=== PATIENT | male | born 1950 | race Caucasian/White ===

== ENCOUNTER 2016-10-03 05:37 | Day surgery (SDC) | payer MEDICARE ==
[2016-10-02 11:59] LABS: HEMATOCRIT 39.6 % (42.0-54.0); HEMOGLOBIN 13.1 g/dL (13.5-17.5); MCHC 33.1 g/dL (31.0-37.0); MCV 87.8 fL (80.0-100.0); MEAN PLATELET VOLUME 9.6 fL (7.4-10.4); RBC 4.51 10x6/uL (4.20-6.10); RDW 12.9 % (11.5-14.5); WBC 5.8 10x3/uL (4.8-10.8)
[2016-10-02 12:28] LABS: CALC OSMOLALITY 281 mosm/kg (275-300); CALCIUM 9.3 mg/dL (8.5-10.1); CARBON DIOXIDE 27.9 mmol/L (21.0-32.0); CHLORIDE - SERUM 103 mmol/L (98-107); CREATININE - SERUM 0.8 mg/dL (0.6-1.3); GLUCOSE 123 mg/dL (74-106); POTASSIUM - SERUM 3.9 mmol/L (3.5-5.1); SODIUM 141 mmol/L (136-145); UREA NITROGEN 12 mg/dL (7-18); eGFR NON AFRICAN AMERICAN > 90 mL/min (90-120)
[~2016-10-03] VITALS: Ht 180.3 cm; Wt 99.8 kg
[~2016-10-03 05:37] MED LIST: ASPIRIN325 MG PO; ATIVAN1 MG PO; ATIVAN2 MG PO; BAYER CHEWABLE81 MG PO; CARBIDOPA-LEVO1 EAC2 PO; CIMETIDINE PO; CIMETIDINE200 MG PO; CLONAZEPAM2 MG/TAB; CLONAZEPAM2 MG/TAB PO; CRESTOR20 MG PO; CYMBALTA30 MG PO; CYMBALTA60 MG PO; DESERYL100 MG PO; DILAUDID2 MG PO; DILAUDID4 MG PO; FISH OIL 1,0001 CA1 PO; FISH OIL 1,2001 CAP PO; FISH OIL PO; FLOMAX0.4 MG PO; HUMULIN N100 U/ML SC; HUMULIN R100 U/ML SC; K-DUR20 MEQ PO; LASIX20 MG PO; LIPITOR40 MG PO; METOPROLOL TAR100 M1 PO; METOPROLOL TART50 MG PO; MICRO-K10 MEQ PO; MORPHINE SULFAT30 MG PO; MS CONTIN200 MG PO; MS CONTIN30 MG PO; MYSOLINE 50 MG50 MG PO; NATURAL SENNA8.6 MG PO; NEURONTIN800 MG PO; NIASPAN500 MG PO; NORVASC10 MG PO; NOVOLIN 70/30 110 ML SC; PAMELOR10 MG PO; PEPCID20 MG PO; PLAVIX75 MG PO; PRAVACHOL40 MG PO; RANEXA500 MG PO; SEROQUEL400 MG PO; STOOL SOFTENER PO; STOOL SOFTENER240 MG PO; TRAZODONE HCL50 MG PO; ZANTAC300 MG PO; ZESTRIL10 MG PO; ZYLOPRIM100 MG PO
[2016-10-03 07:38] VITALS: BP 126/64; Ht 180.3 cm; Wt 99.8 kg
[2016-10-03 08:56] LABS: APTT 25.9 SECONDS (22.8-39.4); INR 0.95 (0.85-1.17); PROTIME 12.5 SECONDS (11.6-15.0)
[2016-10-03] MEDS ORDERED: HYDROCODONE-APA1 TAB PO (13:03)
--- NOTE | 2016-10-03 14:53 | NUR ---
1430- VOIDED WITHOUT DIFFICULTY 1445- IV D/C'D, PT TOLERATED. PORT FLUSHED WITH HEPARIN 1453- DISCHARGE INSTRUCTIONS COMPLETED. PT VERBALIZED UNDERSTANDING. PAPERWORK SIGNED.
--- NOTE | 2016-11-02 10:48 | OP ---
PATIENT NAME: ERIN BECKER MEDICAL RECORD: [id number] :54 LOCATION:[facility] ADMISSION DATE: SURGEON: KYMBERLY DAVIS MD DATE OF OPERATION: 10/03/2016 Orthopedic Surgery Operative Note PREOPERATIVE DIAGNOSIS: Achilles tendon rupture, second time. POSTOPERATIVE DIAGNOSIS: Achilles tendon rupture, second time. PROCEDURE: Revision Achilles tendon repair. ANESTHESIA: General. INTRAOPERATIVE COMPLICATIONS: None. SUMMARY OF PATHOLOGIC FINDINGS: Unfortunately, this gentleman had fallen onto his previously fixed Achilles tendon resulting in complete redisruption of the Achilles tendon with loss of fixation and loss of tendon. OPERATION IN DETAIL: After obtaining the appropriate preoperative orthopedic surgery consent as well as anesthetic consultation, evaluation and clearance, the patient was brought to the operating room and placed on the operating table in supine position. After general laryngeal mask was administered, tourniquet was placed about the proximal aspect of the left lower extremity. The patient was then placed in a supine position. All pressure points were well padded. Left lower extremity was prepped and draped in a routine sterile fashion. Leg was elevated and exsanguinated. Tourniquet inflated 350 mmHg. Incision was taken down to the level of the repeat disruption. All previously placed implants were removed. A very small fracture in the posterior part of the os calcis. All this was cleaned out. Copious irrigation was then followed by repeat fixation using the Arthrex Achilles fixation system that is the Arthrex BioComposite Achilles SpeedBridge. This also required a posterior tibialis tendon allograft to augment the fixation which was then augmented with two 2.5 Clarix cord membranes, one 4.03 Clarix cord and one 2.25 Clarix cord membrane. Closure was complete, but tenuous. Having completed this, the area was covered with sterile dressings. The patient was placed in a posterior L&U splint. The patient was awakened, placed back in supine position, extubated, and taken to recovery room in stable condition. All final needle and sponge counts were correct. TRANSINT:[id number] Voice Confirmation ID: [id number] DOCUMENT ID: [id number] KYMBERLY DAVIS MD at 1048 CC: [id number] DICTATION DATE: 11/01/16 1005 LEADERSHIP DEVELOPMENT MANAGER: 11/01/16 1055 [facility] 10/03/16 [facility] [address] [place] [address]
== END 2016-10-03 15:10 | disposition home or self-care (01) ==
LOC: D.OPS 05:37 → D.PAN 10:15 → D.OPS 10:15 → D.PAN 11:00 → D.OPS 15:10
PROVIDERS: Anesthesiology
DX: S86.012A Strain of left Achilles tendon, initial encounter (principal)
CPT/HCPCS: 20924; 27654; C5271

== ENCOUNTER 2016-10-15 17:43 | Emergency (ER) | payer MEDICARE ==
[2016-10-03 07:38] VITALS: BMI 30.7
[~2016-10-15 17:43] MED LIST changes: +HYDROCODONE-APA1 TAB PO
[2016-10-15 18:26] LABS: BASOPHILS 0.4 % (0.0-2.0); HEMATOCRIT 34.6 % (42.0-54.0); HEMOGLOBIN 11.5 g/dL (13.5-17.5); IMMATURE GRANULOCYTES 0.6 % (0-5); LYMPHOCYTES 19.2 % (15-50); MCH 28.7 pg (26.0-34.0); MCHC 33.2 g/dL (31.0-37.0); MCV 86.3 fL (80.0-100.0); MEAN PLATELET VOLUME 9.5 fL (7.4-10.4); MONOCYTES 8.8 % (2-11); RBC 4.01 10x6/uL (4.20-6.10); RDW 12.3 % (11.5-14.5)
[2016-10-15 18:27] LABS: PLATELET COUNT 289 10x3/uL (130-400)
[2016-10-15 18:55] LABS: ALKALINE PHOSPHATASE 120 U/L (46-116); ALT (SGPT) 6 U/L (10-68); BILIRUBIN - TOTAL 0.32 mg/dL (0.2-1.3); CALC OSMOLALITY 273 mosm/kg (275-300); CALCIUM 9.2 mg/dL (8.5-10.1); CARBON DIOXIDE 25.2 mmol/L (21.0-32.0); CHLORIDE - SERUM 99 mmol/L (98-107); CREATININE - SERUM 0.9 mg/dL (0.6-1.3); POTASSIUM - SERUM 4.5 mmol/L (3.5-5.1); PROTEIN - SERUM 7.4 g/dL (6.4-8.2); SODIUM 135 mmol/L (136-145); UREA NITROGEN 11 mg/dL (7-18); eGFR NON AFRICAN AMERICAN > 90 mL/min (90-120)
[2016-10-15 18:56] LABS: GLUCOSE 181 mg/dL (74-106)
[2016-10-15 19:05] LABS: CHOL - HDL RATIO 3.8 ratio (2.3-4.9); CHOLESTEROL, TOTAL 160 mg/dL (0-200); CKMB 0.4 U/L (0.0-3.6); CREATINE KINASE 50 UL (21-232); HDL CHOLESTEROL 42 mg/dL (32-96); LDL CHOLESTEROL 90 mg/dL (0-100); LDL-HDL RATIO 2.1 ratio (1.5-3.5); TRIGLYCERIDE 143 mg/dL (30-200)
[2016-10-15 19:09] LABS: TROPONIN-I < 0.017 ng/mL (0.000-0.060)
[2016-10-15 23:00] LABS: CREATINE KINASE 66 UL (21-232)
[2016-10-15 23:04] LABS: TROPONIN-I < 0.017 ng/mL (0.000-0.060)
== END 2016-10-15 23:52 | disposition home or self-care (01) ==
LOC: D.ER 17:43
PROVIDERS: Emergency Medicine
DX: R07.9 Chest pain, unspecified (principal); I20.8 Other forms of angina pectoris

== ENCOUNTER 2016-10-22 12:13 | Inpatient (IN) | payer MEDICARE ==
[~2016-10-22] VITALS: Ht 180.3 cm; Wt 100.0 kg
[2016-10-22 13:05] VITALS: BP 150/57; Ht 180.3 cm; Wt 100.0 kg
[2016-10-22 14:13] LABS: BASOPHILS 0.5 % (0.0-2.0); EOSINOPHILS 2.1 % (0-7); HEMATOCRIT 35.1 % (42.0-54.0); HEMOGLOBIN 11.6 g/dL (13.5-17.5); IMMATURE GRANULOCYTES 0.1 % (0-5); LYMPHOCYTES 21.2 % (15-50); MCH 28.6 pg (26.0-34.0); MCV 86.5 fL (80.0-100.0); MEAN PLATELET VOLUME 9.7 fL (7.4-10.4); MONOCYTES 5.9 % (2-11); NEUTROPHILS 70.2 % (40-80); PLATELET COUNT 284 10x3/uL (130-400); RBC 4.06 10x6/uL (4.20-6.10); RDW 12.9 % (11.5-14.5); WBC 7.6 10x3/uL (4.8-10.8)
[2016-10-22 14:33] LABS: ANION GAP 14.5 mmol/L (8-16); C-REACTIVE PROTEIN 2.1 mg/dL (0.0-0.9); CALCIUM 8.7 mg/dL (8.5-10.1); CARBON DIOXIDE 26.3 mmol/L (21.0-32.0); CREATININE - SERUM 1.2 mg/dL (0.6-1.3); POTASSIUM - SERUM 4.8 mmol/L (3.5-5.1)
[2016-10-22 14:34] LABS: HEMOGLOBIN A1C 7.7 % (4.8-6.0)
--- NOTE | 2016-10-22 14:40 | NUR ---
PATIENT'S LEFT SUBCLAVIAN PORT ACCESSED WITH A 1 INCH MICHELE NEEDLE. IVF BEGUN PER ORDERS AND DILAUDID PLANT CARE WORKER INITIATED. HE VERBALIZED UNDERSTANDING OF THE VERBAL INSTRUCTIONS GIVEN. ABTS HUNG, LUNCH PROVIDED. HIS IMMOBILIZER BOOT, JACKET AND COWBOY BOOT ARE IN THE CLOSET. HE HAS A FLIP PHONE AND DENIES WANTING TO SEND IT TO THE [facility]. CALL LIGHT IS WITHIN HIS REACH ANF HE UNDERSTANDS HOW TO USE IT.
[2016-10-22 15:59] LABS: ERYTHROCYTE SEDIMENTATION RATE 66 mm/hr (0-20)
[2016-10-22 16:27] VITALS: BP 109/53
--- NOTE | 2016-10-22 17:20 | NUR ---
PATIENT GIVEN HER INSULIN AND VANCOMYCIN. HE IS SITTING UP IN IN HIS BED EATING SUPPER. HE IS LOCKED OUT ON THE MORTGAGE ORIGINATOR.
--- NOTE | 2016-10-22 19:32 | NUR ---
PATIENT RESTING SAMMIE, ERICK IN [place] FOWLERS WATCHING TV. DENIES NEEDS.
[2016-10-22 21:14] VITALS: BP 116/54
--- NOTE | 2016-10-23 07:20 | NUR ---
ASSESSMENT PER FLOW SHEET.PT WITHOUT DISTRESS.CALL LIGHT IN REACH.DENIES NEEDS.ENGINEERING PROJECT DESIGNER FOR PAIN.
[2016-10-23 07:23] LABS: BASOPHILS 0.3 % (0.0-2.0); EOSINOPHILS 3.3 % (0-7); HEMATOCRIT 37.6 % (42.0-54.0); HEMOGLOBIN 12.1 g/dL (13.5-17.5); IMMATURE GRANULOCYTES 0.3 % (0-5); LYMPHOCYTES 24.1 % (15-50); MCHC 32.2 g/dL (31.0-37.0); MEAN PLATELET VOLUME 9.7 fL (7.4-10.4); PLATELET COUNT 284 10x3/uL (130-400); RBC 4.32 10x6/uL (4.20-6.10); RDW 12.9 % (11.5-14.5); WBC 6.4 10x3/uL (4.8-10.8)
[2016-10-23 07:31] LABS: CALC OSMOLALITY 285 mosm/kg (275-300); CALCIUM 8.8 mg/dL (8.5-10.1); CARBON DIOXIDE 27.9 mmol/L (21.0-32.0); CHLORIDE - SERUM 104 mmol/L (98-107); CREATININE - SERUM 0.9 mg/dL (0.6-1.3); GLUCOSE 183 mg/dL (74-106); POTASSIUM - SERUM 4.5 mmol/L (3.5-5.1); SODIUM 140 mmol/L (136-145); eGFR NON AFRICAN AMERICAN > 90 mL/min (90-120)
[2016-10-23 07:35] LABS: UREA NITROGEN 19 mg/dL (7-18)
[2016-10-23 08:36] VITALS: BP 104/52
--- NOTE | 2016-10-23 10:27 | NUR ---
Patient Name: ERIN BECKER Admission Status: Elective Accout number: [id number] Admission Date: 10-22-2016 : 1950 Admission Diagnosis: Attending: KACEY Current LOS: 1 Anticipated DC Date: 10-28-2016 Planned Disposition: Home Primary Insurance: MEDICARE A & B Discharge Planning Comments: CM MET WITH PATIENT REGARDING D/C NEEDS AND PLANS. PATIENT STATED HE LIVES WITH HIS EX- (IRAM) AND SHE WILL PICK HIM UP AT DISCHARGE. THERE ARE NO STEPS OR STAIRS AT PATIENTS HOME. PATIENT STATED HE IS INDEPENDENT WITH HIS CARE AND HIS EX- WOULD HELP IF NEEDED. PATIENT STATED HE HAS A WALKER, WHEELCHAIR, CRUTCHES, BS COMMODE, SHOWER CHAIR, AND GLUCOMETER AT HOME. PATIENT STATED HE CHECKS HIS BS 2X A DAY. PATIENTS PCP IS DR. RODRIGUEZ AND PHARMACY IS [facility] AT [place]. PATIENT STATED HE DOES NOT WANT HOME HEALTH UNLESS DOCTOR THINKS HE SHOULD. PATIENT STATED HE AND IRAM COULD DO DRESSING CHANGES. CM EXPLAINED HOME HEALTH MIGHT BE NEEDED FOR WOUND CARE. CM WILL CONTINUE TO FOLLOW PATIENT WITH D/C NEEDS AND PLANS. PCP DR. RODRIGUEZ [facility] [phone] IRAM (EX-) [phone] Tree Feller Operator: Sadie Ho Is the patient Alert and Oriented? Yes 0 * How many steps to enter\exit or inside your home? NO 0 * PCP DR. RODRIGUEZ 0 * Pharmacy [facility] IN [place] 0 * Preadmission Environment Home with Family 0 * ADLs Independent 0 * Equipment Bedside Commode Crutch Glucometer Shower Chair Walker Wheelchair 0 * List name and contact numbers for known caregivers / representatives who currently or will assist patient after discharge: IRAM (EX-) [phone] 0 * Community resources currently utilized None 0 * Additional services required to return to the preadmission environment? Yes 0 * Can the patient safely return to the preadmission environment? Yes 0 * Has this patient been hospitalized within the prior 30 days at any hospital? No 0 Grand Total: 0
[2016-10-23 13:48] VITALS: BP 89/60
--- NOTE | 2016-10-23 15:18 | NUR ---
REMAINS WITHOUT DISTRESS.ELLIS TO BRING SUPPLIES FOR DRESSING CHANGE,SPOKE WITH HER EARLIER WHEN SHE WAS ON UNIT.MONITOR
[2016-10-23 16:01] VITALS: BP 106/58
--- NOTE | 2016-10-23 19:40 | NUR ---
REMAINS WITHOUT NEEDS,WITHOUT DISTRESS.CONT PLAN OF CARE
[2016-10-23 20:00] VITALS: BP 109/47
[2016-10-24] VITALS (7 sets, daily range): BP systolic 94–168; BP diastolic 43–74
--- NOTE | 2016-10-24 01:59 | NUR ---
PT LAYING IN BED EYES CLOSED PT APPERS TO BE SLEEPING AT THIS TIME PT NPO FOR I AND D IN AM WITH DR DAVIS PT AWARE AND UNDERSTANDS PROCEDURE. CONSENTS NEED TO BE SIGNED AND WILL HAVE PT SIGN CONSENTS IN AM WHEN PT WAKES UP. RESPERATIONS EVEN AND UNLABORED AT THIS TIME CALL LIGHT IN REACH SRX2 BED LOW AND LOCKED WILL MONITOR
--- NOTE | 2016-10-24 05:21 | NUR ---
PT LAYING IN BED NO DISTRESS OBSERVED CALL LIGHT IN REACH SRX2 BED LOW AND LOCKED PT APPERS TO BE SLEEPING AT THIS TIME LABS DRAWN AND SENT TO LAB WILL MONITOR
[2016-10-24 05:32] LABS: BASOPHILS 0.5 % (0.0-2.0); EOSINOPHILS 3.4 % (0-7); HEMATOCRIT 32.8 % (42.0-54.0); HEMOGLOBIN 10.3 g/dL (13.5-17.5); IMMATURE GRANULOCYTES 0.4 % (0-5); LYMPHOCYTES 24.6 % (15-50); MCH 27.5 pg (26.0-34.0); MCHC 31.4 g/dL (31.0-37.0); MCV 87.7 fL (80.0-100.0); MEAN PLATELET VOLUME 9.8 fL (7.4-10.4); MONOCYTES 8.1 % (2-11); PLATELET COUNT 248 10x3/uL (130-400); RBC 3.74 10x6/uL (4.20-6.10); WBC 5.6 10x3/uL (4.8-10.8)
[2016-10-24 06:11] LABS: CALC OSMOLALITY 281 mosm/kg (275-300); CALCIUM 8.4 mg/dL (8.5-10.1); CARBON DIOXIDE 26.3 mmol/L (21.0-32.0); CHLORIDE - SERUM 103 mmol/L (98-107); CREATININE - SERUM 0.9 mg/dL (0.6-1.3); GLUCOSE 162 mg/dL (74-106); POTASSIUM - SERUM 4.2 mmol/L (3.5-5.1); SODIUM 138 mmol/L (136-145); UREA NITROGEN 18 mg/dL (7-18); eGFR NON AFRICAN AMERICAN > 90 mL/min (90-120)
--- NOTE | 2016-10-24 07:57 | NUR ---
PT AWAKE AND ALERT ORINETED X 3 LUNGS CLEAR BILAT. BSA X 4 NPO FOR I&D THIS AFTERNOON WITH DR DAVIS. CALL LIGHT IN REACG SIDE RAILS UP X 2 VOICES ALL NEEDS TO STAFF. CONTINUES WITH DILAUDID PLATE MOUNTER FOR PAIN CONTROL WILL MONITOR.
--- NOTE | 2016-10-24 09:07 | NUR ---
WOUND CARE CONSULT: CHANGED DRESSING TO LEFT HEEL USING ADAPTIC, CAST PADDING AND GATITO WRAP. PT TOLERATED WELL.
--- NOTE | 2016-10-24 09:45 | NUR ---
PT PREOPPED FOR SURGERY PER CALL OF OR TEAM PT TO GO EARLY INSTEAD OF SCHEDULED TIME OF 1400
--- NOTE | 2016-10-24 10:00 | NUR ---
PT TRANSPORTED VIA BED TO PREOP HOLDING PER SURGERY CARTON REPAIRER
--- NOTE | 2016-10-24 12:15 | NUR ---
PT RECIEVED FROM RECOVERY AWAKE AND ALERT ORIENTED X 3 DRESSING OT LEFT HEEL WITH SOME BLEED THROUGH NOTED REINFORCED THE DRESSING. WAS GIVEN 2 MG DILAUDID IN RECOVERY
--- NOTE | 2016-10-24 16:25 | NUR ---
PATIENT LAYING IN BED WITH NO COMPLAINTS AT THIS TIME. IV INTACT. NO COMPLAINTS. CALL LIGHT WITHIN REACH.
--- NOTE | 2016-10-24 17:29 | NUR ---
TREATED BLOOD SUGAR 229 PER SLIDING SCALE ORDERS. DRESSING REMAINS INTACT TO LEFT FOOT CALL LIGHT IN REACH SIDE RAILS UP X 2
[2016-10-25 00:30] VITALS: BP 145/52
[2016-10-25 05:00] VITALS: BP 116/55
[2016-10-25 06:48] LABS: BASOPHILS 0.2 % (0.0-2.0); EOSINOPHILS 2.6 % (0-7); HEMATOCRIT 33.5 % (42.0-54.0); HEMOGLOBIN 10.8 g/dL (13.5-17.5); IMMATURE GRANULOCYTES 0.2 % (0-5); LYMPHOCYTES 25.6 % (15-50); MCH 28.1 pg (26.0-34.0); MCHC 32.2 g/dL (31.0-37.0); MEAN PLATELET VOLUME 9.8 fL (7.4-10.4); MONOCYTES 7.9 % (2-11); NEUTROPHILS 63.5 % (40-80); PLATELET COUNT 243 10x3/uL (130-400); RBC 3.85 10x6/uL (4.20-6.10); RDW 12.7 % (11.5-14.5)
[2016-10-25 07:02] LABS: CALC OSMOLALITY 279 mosm/kg (275-300); CALCIUM 8.5 mg/dL (8.5-10.1); CARBON DIOXIDE 28.7 mmol/L (21.0-32.0); CHLORIDE - SERUM 102 mmol/L (98-107); CREATININE - SERUM 0.9 mg/dL (0.6-1.3); GLUCOSE 167 mg/dL (74-106); SODIUM 138 mmol/L (136-145); eGFR NON AFRICAN AMERICAN > 90 mL/min (90-120)
[2016-10-25 07:03] LABS: UREA NITROGEN 13 mg/dL (7-18)
--- NOTE | 2016-10-25 07:29 | NUR ---
AM ROUNDING- PT SITTING UP IN BED WITH EYES OPEN RESTING. PT IS ALERT AND ORIENTED. IV SEEN TO LEFT INFUSAPORT WITH 1/2 NS RUNNING AT 50CC. BUYER BROKER SEEN WITH DILAUDID AT 0.2MG Q 10 MINUTES WITH A 4MG LOCKOUT IN 4 HOURS PER REPORT FROM CATERING COORDINATOR NURSELOWELL. ON ROOM AIR. NO MONITOR. URINAL AT BEDSIDE. FSBS ACHS, 174 THIS AM THAT WAS COVERED BY CATERING COORDINATOR NURSELOWELL. NO NEED AT CURRENT TIME. WILL CONTINUE TO MONITOR.
[2016-10-25 08:03] VITALS: BP 124/66
[2016-10-25] MEDS ORDERED: VIBRAMYCIN 100100 MG PO (09:48)
[2016-10-25] MEDS ORDERED: DILAUDID2 MG PO (09:51)
--- NOTE | 2016-10-25 10:09 | NUR ---
CM REASSESSMENT NOTE: PATIENTS WILL DRIVE PATIENT HOME TODAY AT DISCHARGE. PATIENT WAS OFFERED HOME HEALTH AND HE REFUSED AND CM SPOKE WITH MAYA NGUYEN FOR DR. DAVIS AND SHE STATED HE DID NOT NEED HOME HEALTH. PATIENT HAD NO OTHER NEEDS FOR DISCHARGE.
--- NOTE | 2016-10-25 11:59 | NUR ---
PTS INFUSA PORT TO LEFT CHEST FLUSHED WITH HEPARIN AND REMOVED. TOLERATED WELL. D/C PAPERWORK EXPLAINED TO PT, SIGNED AND DATED AND PLACED IN CHART. PT D/C VIA WHEELCHAIR HOME WITH .
[2016-10-25 12:02] VITALS: BP 143/83
--- NOTE | 2016-10-28 17:08 | OP ---
PATIENT NAME: ERIN YOO MEDICAL RECORD: [id number] :54 LOCATION:[id number] ADMISSION DATE:10/22/16 SURGEON: KYMBERLY DAVIS MD DATE OF OPERATION: 10/24/2016 PREOPERATIVE DIAGNOSIS: Re-rupture of the Achilles tendon with wound dehiscence. POSTOPERATIVE DIAGNOSIS: Re-rupture of the Achilles tendon with wound dehiscence. This is of his left ankle. PROCEDURES: 1. Excisional debridement to include skin, subcutaneous tissue, portions of fat, fascia, muscle, and bone greater than 20 cm-squared. 2. Application of Amniox Neox wound covering 8 x 3. SURGEON: Kymberly Davis MD ANESTHESIA: General. INTRAOPERATIVE COMPLICATIONS: None. INDICATIONS: Mr. Yoo initially had an Achilles tendon rupture in his postoperative period. He fell on to his left ankle and re-ruptured it. It was subsequently fixed again and yet another time, he fell or stepped onto his foot and heard a pop, during which time he was told to be complete nonweightbearing. Now, he has developed a large wound dehiscence, nonhealing, and he is brought in for the above surgery. OPERATIVE SUMMARY IN DETAIL: After obtaining the appropriate preoperative orthopedic surgery consent as well as anesthetic consultation, evaluation, and clearance, the patient was brought to the operating room and placed on the operating table in supine position. After adequate general endotracheal anesthesia was administered, the patient was placed in a prone position. All pressure points were well padded. The left lower extremity and ankle were then prepped and draped in a routine sterile fashion. Serial and sequential scalpel and rongeur debridement was used to take out all devitalized skin, subcutaneous tissue, portions of the tendon and bone at the previous insertion sites. Some of the tendon is retained although scant, it is probably less than 30% and given the overall infectious nature of it, I did not feel like a reapproximation with any permanent suture is a good idea. After all excisional debridements had been carried out, 8 x 3 Neox umbilical cord was placed over it and sewn in place circumferentially using 2-0 Monocryl. This resulted in excellent coverage of the entire wound bed, which was bleeding at the time of coverage. The Amniox was then covered with nonstick Adaptic followed by 4 x 4s, and sterile dressing. The patient was then returned to a supine position, awakened, taken to recovery room in stable condition. All final needle and sponge counts were correct. TRANSINT:[id number] Voice Confirmation ID: [id number] DOCUMENT ID: [id number] OPERATIVE REPORT [id number] ERIN YOO MD, KYMBERLY MCCARTNEY at 1708 CC: [id number] DICTATION DATE: 10/24/16 111 DIESEL ENGINE MECHANIC APPRENTICE: 10/24/161911 DIS IN 10/25/16 [id number] [place] [address]
== END 2016-10-25 12:04 | disposition home or self-care (01) | DRG 905 ==
LOC: D.MS 12:13
PROVIDERS: Family Medicine; ADMIT Orthopaedic Surgery
PROC: 0HRNXK3 Replacement of Left Foot Skin with Nonautologous Tissue Substitute, Full Thickness, External Approach (ICD-10-PCS; 2016-10-24)
PROC: 0QBM0ZZ Excision of Left Tarsal, Open Approach (ICD-10-PCS; principal; 2016-10-24 14:15)
DX: T81.32XA Disruption of internal operation (surgical) wound, not elsewhere classified, initial encounter (principal); S86.012A Strain of left Achilles tendon, initial encounter; W19.XXXA Unspecified fall, initial encounter; I25.10 Atherosclerotic heart disease of native coronary artery without angina pectoris; Z95.1 Presence of aortocoronary bypass graft; Z95.9 Presence of cardiac and vascular implant and graft, unspecified; I10 Essential (primary) hypertension; E78.5 Hyperlipidemia, unspecified; E11.9 Type 2 diabetes mellitus without complications; Z79.4 Long term (current) use of insulin; I50.9 Heart failure, unspecified

== ENCOUNTER 2016-11-07 07:26 | Day surgery (SDC) | payer MEDICARE ==
[~2016-11-07] VITALS: Ht 180.3 cm; Wt 97.5 kg
[~2016-11-07 07:26] MED LIST changes: +VIBRAMYCIN 100100 MG PO
[2016-11-07] MEDS ORDERED: MS CONTIN30 MG PO (08:20)
[2016-11-07 08:25] VITALS: Ht 180.3 cm; Wt 97.5 kg
[2016-11-07 09:17] LABS: BASOPHILS 0.3 % (0.0-2.0); HEMOGLOBIN 11.1 g/dL (13.5-17.5); IMMATURE GRANULOCYTES 0.3 % (0-5); LYMPHOCYTES 18.8 % (15-50); MCH 28.3 pg (26.0-34.0); MCHC 32.6 g/dL (31.0-37.0); MCV 86.7 fL (80.0-100.0); MEAN PLATELET VOLUME 10.3 fL (7.4-10.4); MONOCYTES 8.4 % (2-11); NEUTROPHILS 69.2 % (40-80); RBC 3.92 10x6/uL (4.20-6.10); RDW 13.3 % (11.5-14.5); WBC 6.7 10x3/uL (4.8-10.8)
[2016-11-07 09:20] LABS: PLATELET COUNT 167 10x3/uL (130-400)
[2016-11-07 09:32] LABS: ANION GAP 14.8 mmol/L (8-16); CALCIUM 8.6 mg/dL (8.5-10.1); CARBON DIOXIDE 24.1 mmol/L (21.0-32.0); CREATININE - SERUM 1.1 mg/dL (0.6-1.3); POTASSIUM - SERUM 3.9 mmol/L (3.5-5.1)
--- NOTE | 2016-11-08 14:00 | OP ---
PATIENT NAME: ERIN BECKER MEDICAL RECORD: [id number] :54 LOCATION:[facility] ADMISSION DATE: SURGEON: KYMBERLY DAVIS MD DATE OF OPERATION: 11/07/2016 PREOPERATIVE DIAGNOSIS: Open wound of the left Achilles tendon. POSTOPERATIVE DIAGNOSIS: Open wound of the left Achilles tendon. PROCEDURE: 1. Excisional debridement of skin, subcutaneous tissue, portions of fat, fascia and tendon. 2. Application of Neox wound covering. SURGEON: Kymberly Davis MD. ANESTHESIA: General. INTRAOPERATIVE COMPLICATIONS: None. SUMMARY OF PATHOLOGIC FINDINGS: While this had healed substantially, it was time again for another debridement with Neox dressing and hopefully the last. OPERATIVE SUMMARY IN DETAIL: After obtaining the appropriate preoperative orthopedic surgery consent as well as anesthetic consultation, evaluation and clearance, the patient was brought to the operating room and placed on the table in supine position. After general endotracheal anesthesia was administered, the patient was placed in a prone position. All pressure points were well padded. Left lower extremity was prepped and draped in routine sterile fashion. Portions of eschar along with a subcutaneous tissue as well as tendon were removed along with other previously placed suture anchors, these were all taken down. Copious bulb syringe was utilized and the Neox umbilical 3 x 8 was then sutured across the top of the wound using 2-0 Monocryl. Incisions were made to avoid hematoma under the coverage. Adaptic dressing was then utilized. The wound was then covered with sterile dressings. The patient was awakened, taken to recovery room in stable condition. All final needle and sponge counts were correct. TRANSINT:[id number] Voice Confirmation ID: [id number] DOCUMENT ID: [id number] KYMBERLY DAVIS MD at 1400 CC: [id number] DICTATION DATE: 11/07/16 1201 WATERWORKS PUMP STATION OPERATOR: 11/07/[address] [facility] 11/07/[address] [address]
== END 2016-11-07 13:30 | disposition home or self-care (01) ==
LOC: D.OPS 07:26
PROVIDERS: Anesthesiology
DX: T81.89XA Other complications of procedures, not elsewhere classified, initial encounter (principal)

== ENCOUNTER 2016-11-21 17:10 | Inpatient (IN) | payer MEDICARE ==
[~2016-11-21] VITALS: Ht 180.3 cm; Wt 105.5 kg
--- NOTE | ~2016-11-21 | HEMODYNAMI ---
PATIENT:ERIN BECKER MEDICAL RECORD: [id number] : 54 [facility] [id number] ADMISSION DATE: 11/21/16 Generatedon:11/26/20168:39 Patient name: ERIN BECKER Patient #: [id number] SSN: : 1950 Date of study: 11/26/2016 Page: Of Hemodynamic Procedure Report Patient Data Patient Demographics Procedure consent was obtained First Name: ERIN Gender: Male Last Name: ROSITA : 1950 [facility] Initial: DILLON Age: 65 year(s) Patient #: [id number] Race: Additional ID: [id number] Contact details Address: [address] [place] [address] [address]REET State: [place] City: [place] Zip code: [address] Past Medical History History of disease Date Diagnosis Comments CAD CHF->FISHER PVD Previous SD Hypertension Diabetes Allergies Allergen Reaction Date Comments Reported Other allergy 07/24/2015 Codeine, Toradol, IV Dye Iodine 09/16/2016 Codeine 09/16/2016 Other allergy 11/26/2016 Iv contrast, Iodine, Toradol, Codeine Admission Admission Data Admission Date: 11/21/2016 Admission Time: 19:42 Admit Source: Other Insurance Payor: Medicare Room #: D.2120 Weight (lbs.): 231.49 Weight (kg.): 105 Medications upon Admission Medications Dosage Times Administered Last Remarks per Delivery Day Date and Time Clopidogrel Yes 11/26/2016 0:00 Lab Results Lab Result Date: 11/26/2016 Lab Result Time: 0:00 Biochemistry Name Units Result Min Max BUN mg/dl 37 --(----)-* 7 18 Creatinine mg/dl 1.9 --(----)-* 0.6 1.3 CBC Name Units Result Min Max Hemoglobin g/dl 10.7 *-(----)-- 13.5 17.5 Procedure Procedure Types Cath Procedure Diagnostic Procedure LHC LHC w/Coronaries w/Grafts Miscellaneous Procedures Moderate Sedation up to 30 minutes Procedure Description Procedure Date Procedure Date: 11/26/2016 Procedure Start Time: 8:09 Procedure End Time: 8:39 Procedure Staff Name Function Slick Burgess MD Performing Physician Ania Hamilton RT Scrub Rufus Canas RT Monitor Karie Coronado RN Monitor Procedure Data Cath Procedure Fluoroscopy Diagnostic fluoroscopy Total fluoroscopy Time: 4.4 time: 4.4 min min Diagnostic fluoroscopy Total fluoroscopy dose: 732 dose: 732 mGy mGy Contrast Material Contrast Material Type Amount (ml) Isovue 300 73 Entry Location Entry Primary Successful Side Size Upsize Upsize Entry Closure Succes sful Closure Location (Fr) 1 (Fr) 2 (Fr) Remarks Device Remarks Femoral Left 5 Fr Vascade artery Closure System Estimated blood loss: 5 ml Diagnostic catheters Device Type Used For End Catheter Placement Cordis 5Fr Pigtail Procedure Catheter (MP) Cordis 5Fr JL 4.0 Procedure Catheter (MP) Cordis 5Fr 3DRC Catheter Procedure (MP) Diagnostic Infinity 5Fr Procedure AR 2 MOD catheter Procedure Complications No complications Procedure Medications Medication Administration Route Dosage Oxygen NC 2 l/min Lidocaine 2% added to field 20 Heparin Flush Bag added to field 2 bags (1000units/500ml NS) 0.9% NaCl I.V. 100 ml/hr Versed I.V. 1 mg Fentanyl I.V. 50 mcg Versed I.V. 1 mg Fentanyl I.V. 50 mcg Versed I.V. 1 mg Fentanyl I.V. 50 mcg Versed I.V. 1 mg Fentanyl I.V. 50 mcg Versed I.V. 1 mg Fentanyl I.V. 50 mcg Fentanyl I.V. 50 mcg Lidocaine 2% added to field 20 Fentanyl I.V. 50 mcg Hemodynamics Rest HGB: 10.7 (g/dl) Heart Rate: 86 (bpm) Snapshots Pre Cath Intra NCS Post Cath Vital Signs Time Heart Resp SPO2 etCO2 [id number] NIBP (mmHg) Rhythm Pain Sedation Rate (ipm) (%) (mmHg) (mmHg) Status Level (bpm) 7:54:35 84 16 96 0 0 153/113(120) NSR 0 (11) 10(A) , No pain 8:00:23 82 15 99 0 0 185/98(156) NSR 0 (11) 10(A) , No pain 8:05:08 75 16 97 0 0 177/77(138) NSR 0 (11) 10(A) , No pain 8:09:42 76 17 96 0 0 138/94(103) NSR 0 (11) 9(A) , No pain 8:14:02 75 15 94 0 0 138/91(127) NSR 0 (11) 9(A) , No pain 8:19:40 81 16 96 0 0 142/96(135) NSR 0 (11) 9(A) , No pain 8:24:00 84 18 97 0 0 149/99(143) NSR 0 (11) 9(A) , No pain 8:28:22 91 16 96 0 0 159/102(131) NSR 0 (11) 9(A) , No pain 8:32:50 87 17 97 0 0 139/86(132) NSR 0 (11) 10(A) , No pain 8:37:11 86 7 97 0 0 157/97(126) NSR 0 (11) 10(A) , No pain Medications Time Medication Route Dose Verified Delivered Reason Notes Effec tiveness by by 7:55:24 Oxygen NC 2 Slick Nahun used for l/min Jenifer Patel welding technician 7:55:31 Lidocaine 2% added 20ml Slickgordon Kruger for local to vial Jenifer Burgess MD anesthetic field 7:55:36 Heparin Flush added 2 Slickgordon Kruger used for Bag to bags Jenifer Burgess MD procedure (1000units/500ml field NS) 7:55:47 0.9% NaCl I.V. 100 Slickgordon Kruger Per ml/hr Jenifer Burgess MD physician 8:04:10 Versed I.V. 1 mg Slick Tiwari for Jenifer Coronado RN sedation 8:04:16 Fentanyl I.V. 50 Slick Kyleie for mcg Jenifer Coronado RN sedation 8:08:33 Versed I.V. 1 mg Slick Tiwari for Jenifer Coronado RN sedation 8:08:36 Fentanyl I.V. 50 Slick Sarojie for mcg Jenifer Coronado RN sedation 8:12:12 Versed I.V. 1 mg Slick Tiwari for Jenifer Coronado RN sedation 8:12:15 Fentanyl I.V. 50 Slick Kyleie for mcg Jenifer Coronado RN sedation 8:17:05 Lidocaine 2% added 20ml Slick Tiwari for local to vial Jenifer Coronado RN anesthetic field 8:17:43 Versed I.V. 1 mg Slick Tiwari for Jenifer Coronado RN sedation 8:17:47 Fentanyl I.V. 50 Slick Buffie for mcg Jenifer Coronado RN sedation 8:23:16 Versed I.V. 1 mg Slick Kyleie for Jenifer Coronado RN sedation 8:23:20 Fentanyl I.V. 50 Slick Kyleie for mcg Jenifer Coronado RN sedation 8:26:46 Fentanyl I.V. 50 Slick Buffie for mcg Jenifer Coronado RN sedation 8:32:18 Fentanyl I.V. 50 Slick Buffie for mcg Jenifer Coronado RN sedation Procedure Log Time Note 7:15:00 Nahun Patel RN sent for patient. Start room use. 7:47:38 Informed consent obtained and on chart 7:48:07 Time tracking: Regular hours 7:48:10 Plan of Care:Hemodynamics will remain stable., Cardiac rhythm will remain stable., Comfort level will be maintained., Respiratory function will remain adequate., Patient/ family verbilizes understanding of procedure., Procedure tolerated without complication., Recovers from procedure without complications.. 7:48:16 Patient received from Med II to CCL 1 Alert and oriented. Tansferred to table in Supine position. 7:48:17 Warm blankets applied, and raghu hugger turned on for patient comfort. 7:48:17 Warm blankets applied, and raghu hugger turned on for patient comfort. 7:48:18 Correct patient and procedure confirmed by team. 7:48:19 ECG and BP/O2 sat monitors applied to patient. 7:53:27 Vital chart was started 7:53:50 Baseline sample Acquired. 7:55:24 Oxygen 2 l/min NC was given by Nahun Patel RN; used for procedure; 7:55:31 Lidocaine 2% 20ml vial added to field was given by Slick Burgess MD; for local anesthetic; 7:55:36 Heparin Flush Bag (1000units/500ml NS) 2 bags added to field was given by Slick Burgess MD; used for procedure; 7:55:37 Baseline sample Acquired. 7:55:40 Rhythm: sinus rhythm 7:55:47 0.9% NaCl 100 ml/hr I.V. was given by Slick Burgess MD; Per physician; 7:55:49 Full Disclosure recording started 7:56:24 H&P Date Dictated: 11/26/2016 New H&P dictated by physician.. 7:56:27 Pre-procedure instructions explained to patient. 7:56:28 Pre-op teaching completed and patient verbalized understanding. 7:56:30 Family in waiting room. 7:56:31 Patient NPO since Midnight. 7:57:09 Patient allergic to Other allergyIv contrast, Iodine, Toradol, Codeine 7:57:11 Is the patient allergic to Iodine/contrast media? Yes. 7:57:12 Was the patient premedicated? Yes 7:57:16 Is patient on blood thinner?Yes 7:57:19 ACC The patient was administered the following blood thiners within the last 24 hours: ACCPlavix 7:58:19 Patient diabetic? No. 7:58:26 Previous problem with sedation/anesthesia? No ? 7:58:28 Snore? Yes 7:58:29 Sleep apnea? Yes 7:58:30 Deviated septum? No 7:58:31 Opens mouth fully? Yes 7:58:32 Sticks out tongue? Yes 7:58:33 Airway obstruction? No ? 7:58:37 Dentures? No ? 7:58:41 Pre procedure: right dorsailis pedis pulse 2+ Normal; easily identifiable; not easily obliterated 7:58:46 Patient pain scale 0/10 ?. 7:59:22 IV patent on arrival in left forearm with 0.9% NaCl at [facility]. 8:01:53 Lab Result : Creatinine 1.9 mg/dl 8:01:53 Lab Result : BUN 37 mg/dl 8:01:53 Lab Result : Hemoglobin 10.7 g/dl 8:01:57 Lab results completed and on chart. 8:02:01 Right groin area was prepped with chlora-prep and draped in sterile fashion 8:02:03 Alarms reviewed by R. N. 8:02:03 Sharps counted by scrub and verified by R.N. 8:02:10 Physician arrived 8:02:11 --------ALL STOP TIME OUT------ 8:02:11 Final Timeout: patient, procedure, and site verified with staff and physician. All members of the team are in agreement. 8:02:13 Right groin site verified by team. 8:02:15 Physical assessment completed. ASA score P 2 - A patient with mild systemic disease as per Slick Burgess MD. 8:02:18 Sedation plan: IV Moderate Sedation Versed, Fentanyl 8:02:27 Use device set Femoral Dx 8:02:29 Acist Syringe opened to sterile field. 8:02:29 Bag Decanter opened to sterile field. 8:02:30 Medline Cath Pack opened to sterile field. 8:02:30 Terumo 5Fr [place] Sheath opened to sterile field. 8:02:31 St Az 260cm J .035 wire opened to sterile field. 8:02:32 Acist Hand Control opened to sterile field. 8:02:32 Acist Manifold opened to sterile field. 8:02:33 Diagnostic Infinity 5Fr Multipack catheter opened to sterile field. 8:02:34 Tegaderm 4 x 4 opened to sterile field. 8:04:10 Versed 1 mg I.V. was given by Karie Coronado RN; for sedation; 8:04:16 Fentanyl 50 mcg I.V. was given by Karie Coronado RN; for sedation; 8:05:59 Procedure type changed to Cath procedure, Diagnostic procedure, LHC, LHC w/Coronaries w/Grafts, Miscellaneous Procedures, Moderate Sedation up to 30 minutes 8:07:00 Zero performed for pressure channel P1 8:08:33 Versed 1 mg I.V. was given by Karie Coronado RN; for sedation; 8:08:36 Fentanyl 50 mcg I.V. was given by Karie Coronado RN; for sedation; 8:08:56 Zero performed for pressure channel P1 8:08:58 Zero performed for pressure channel P1 8:09:00 Zero performed for pressure channel P1 8:09:10 Procedure started. 8:09:13 Local anesthetic to right femoral artery with Lidocaine 2% by Slick Burgess MD.INITIAL ACCESS ONLY 8:12:12 Versed 1 mg I.V. was given by Karie Coronado RN; for sedation; 8:12:15 Fentanyl 50 mcg I.V. was given by Karie Coronado RN; for sedation; 8:13:12 Merit 18G 9cm Percutaneous Entry needle opened to sterile field. 8:16:47 ST Az 4Fr Sheath opened to sterile field. 8:17:05 Lidocaine 2% 20ml vial added to field was given by Karie Coronado RN; for local anesthetic; 8:17:43 Versed 1 mg I.V. was given by Karie Coronado RN; for sedation; 8:17:47 Fentanyl 50 mcg I.V. was given by Karie Coronado RN; for sedation; 8:23:16 Versed 1 mg I.V. was given by Karie Coronado RN; for sedation; 8:23:20 Fentanyl 50 mcg I.V. was given by Karie Coronado RN; for sedation; 8:24:03 unabel to advance sheath. moving to left femoral approach. 8:24:55 Local anesthetic to left femerol artery with Lidocaine 2% by Slick Burgess MD.ADDITIONAL ACCESS 8:25:26 [employer] AMPLATZ Super stiff 260 3MM J guidewir opened to sterile field. 8:25:44 A 5 Fr sheath was inserted into the Left Femoral artery 8:26:14 A Cordis 5Fr Pigtail Catheter (MP) was advanced over the wire and used for Procedure. 8:26:18 LV gram done using GOLDSTEIN 8:26:20 Injector settings: Ml/sec: 10, Volume: 20, 8:26:45 EF : 60 % 8:26:46 Fentanyl 50 mcg I.V. was given by Karie Coronado RN; for sedation; 8:26:48 Catheter removed. 8:26:52 A Cordis 5Fr JL 4.0 Catheter (MP) was advanced over the wire and used for Procedure. 8:27:32 LCA angiography performed. 8:28:12 Catheter removed. 8:28:16 A Cordis 5Fr 3DRC Catheter (MP) was advanced over the wire and used for Procedure. 8:28:50 KAPOOR to LAD angiography performed. 8:29:07 Catheter removed. 8:29:13 A Diagnostic Infinity 5Fr AR 2 MOD catheter was advanced over the wire and used for Procedure. 8:29:55 All other vein grafts are closed. 8:30:20 RCA angiography performed. 8:30:49 Catheter removed. 8:31:03 Vascade 5Fr Closure Device opened to sterile field. 8:32:18 Fentanyl 50 mcg I.V. was given by Karie Coronado RN; for sedation; 8:32:31 Sheath removed intact; hemostasis achieved with Vascade Closure System to the Left Femoral artery. 8:32:33 Procedure ended.(Physican Out) 8:32:38 Fluoroscopy time 04.40 minutes. 8:32:42 Fluoroscopy dose: 732 mGy 8:32:42 Flurop Dose total: 732 8:34:54 ACC Patient presents with Stable Angina CCS Anginal Class 2--Slight limitation of ordinary activity. 8:36:07 Admit Source: Other 8:36:10 Patient Weight : 231.49 lbs 8:36:22 Insurance Payor : Medicare 8:38:09 Contrast amount:Isovue 300 73ml. 8:38:10 Sharps counted by scrub and verified by R.N. 8:38:11 Insertion/operative site no bleeding no hematoma. 8:38:13 Post-op/insertion site Left Femoral artery dressed using a 4 x 4 and Tegaderm. 8:38:18 Post left femerol artery:stable, soft, clean and dry 8:38:19 Post Procedure Pulses reassessed and unchanged 8:38:22 Post-procedure physical assessment completed. ASA score P 2 - A patient with mild systemic disease as per Slick Burgess MD. 8:38:24 Post procedure rhythm: unchanged. 8:38:26 Estimated blood loss: 5 ml 8:38:28 Post procedure instruction explained to patient.Patient verbalizes understanding. 8:38:28 Patient needs reinforcement of post procedure teaching. 8:39:08 Procedure and supply charges have been captured, reviewed, submitted and are correct. 8:39:11 Procedure Complication : No complications 8:39:13 Vital chart was stopped 8:39:13 See physician's report for complete and final results. 8:39:15 Report given to PCU. 8:39:17 Patient transfered to PCU with Stretcher. 8:39:18 Procedure ended. 8:39:18 Full Disclosure recording stopped 8:39:40 ACC-PCI Only Patient was given prescriptions, or instructed by Slick Burgess MD to start/continue the following medications upon discharge: Plavix 8:39:42 End room use (Document Last) Device Usage Item Name Manufacture Quantity Catalog Number Hospital Part Current Mini mal Lot# / Charge Number Stock Stock Serial# Code Acist Acist 1 80560 [id number] 863579 988073 20 Syringe Medical Systems Inc Bag Decanter Microtek 1 2002S 851503 42574 642410 5 Medical Inc. Medline Cath Cardinal 1 [id number] 551477 23199 484692 5 Pack Health Terumo 5Fr Terumo 1 [id number] 619460 064186 675588 [address] Az 1 191260 489040 724853 905084 30 260cm J .035 wire Acist Hand Acist 1 26828 901684 978520 855472 5 Control Medical Systems Inc Acist Acist 1 37297 514365 178617 979812 5 Manifold Medical Systems Inc Diagnostic Cardinal 1 FY5849 209066 06215 180524 30 Infinity 5Fr Health Multipack catheter Tegaderm 4 x 3M 1 1626W 842455 727091 817444 5 4 Merit 18G Merit 1 [id number] 029661 243730 965509 5 9cm Medical Percutaneous Entry needle ST Az 4Fr St Az 1 064533 816759 737447 6824938 5 Sheath [place] Sci [place] 1 [id number] 584956 761531 5 AMPLATZ Scientific Super stiff 260 3MM J guidewir Cordis 5Fr Cardinal 1 811190 5 Pigtail Health Catheter (MP) Cordis 5Fr Cardinal 1 621249 5 JL 4.0 Health Catheter (MP) Cordis 5Fr Cardinal 1 644741 5 3DRC Health Catheter (MP) Diagnostic Cardinal 1 [id number] 138267 336863 411893 20 Infinity 5Fr Health AR 2 MOD catheter Vascade 5Fr Cardiva 1 [id number] 037336 16158 263366 10 Closure Medical, Device Inc. Signature Audit Hardwick Stage Time Signature Unsigned Intra-Procedure 11/26/2016 Rufus Canas 8:39:56 AM RT(R) Signatures Monitor : Rufus Canas RT Signature : Date : Time : Monitor : Karie Coronado RN Signature : Date : Time : [address] [place] [address]
--- NOTE | 2016-11-21 19:51 | NUR ---
ARRIVED TO FLOOR VIA STRETCHER FROM [place]. ORIENTED TO UNIT AND PLACED ON TELEMETRY 80SR. EDWARDS TO GRAVITY. CALL LIGHT IN REACH. WILL CONTINUE TO MONITOR. SEE NURSE ASSESSMENT.
[2016-11-21 19:57] VITALS: BP 90/35
--- NOTE | 2016-11-21 20:26 | NUR ---
DR. ADEEL WATTS, NEW ORDERS RECEIVED. CALL LIGHT IN REACH. WILL CONTINUE TO MONITOR.
[2016-11-21] MEDS ORDERED: PAMELOR10 MG PO (20:43)
[2016-11-21 22:30] VITALS: BP 90/35; BMI 32.9
[2016-11-22] VITALS: BP 86/37
--- NOTE | 2016-11-22 03:33 | NUR ---
BOILER/CHILLER OPERATOR AT BEDSIDE TO OBTAIN VITALS, CALL LIGHT IN REACH. WILL CONTINUE WITH PLAN OF CARE.
[2016-11-22 04:00] VITALS: BP 91/40
--- NOTE | 2016-11-22 07:04 | NUR ---
RECEIVED PT IN BED AAOX4 RESTING QUIETLY DENIES ANY NEEDS AT THIS TIME
--- NOTE | 2016-11-22 07:06 | NUR ---
RECEIVED PT IN BED EYES CLOSED RESP UNLABORED NAD NOTED AT THIS TIME
[2016-11-22 07:17] LABS: ANION GAP 11.5 mmol/L (8-16); CALCIUM 8.7 mg/dL (8.5-10.1); CARBON DIOXIDE 27.6 mmol/L (21.0-32.0); CREATININE - SERUM 1.9 mg/dL (0.6-1.3); POTASSIUM - SERUM 5.1 mmol/L (3.5-5.1)
[2016-11-22 08:07] VITALS: BP 104/42
[2016-11-22 11:23] VITALS: BP 99/32
[2016-11-22 12:25] VITALS: Ht 180.3 cm; Wt 105.5 kg
--- NOTE | 2016-11-22 14:03 | NUR ---
SCD'S ON BILATERAL LE
--- NOTE | 2016-11-22 15:48 | NUR ---
Patient Name: ERIN BECKER Admission Status: Urgent Accout number: [id number] Admission Date: 11-21-2016 : 1950 Admission Diagnosis:ACUTE KIDNEY FAILURE, UNSPECIFIED Attending: AMI Current LOS: 1 Anticipated DC Date: Planned Disposition: Home Primary Insurance: MEDICARE A & B Discharge Planning Comments: CM MET WITH PATIENT REARDING DISCHARGE PLANNING/NEEDS. ALTHOUGH PATIENT HAS SOME DIFFICULTY EXPRESSING THOUGHTS, HE STATES HE PLANS TO DISCHARGE HOME WITH HIS EX- "IRAM BECKER" ([phone]) AND SHE WILL PICK HIM UP AT DISCHARGE. THEY RESIDE IN A SINGLE STORY HOME WITH NO STEPS OR STAIRS PRESENT. PATIENT STATED HE WAS INDEPENDENT OF ADL'S PRIOR TO THIS ADMISSION WITH ASSISTANCE FROM DME EQUIPMENT. HE STATES HE HAS A WALKER, WHEELCHAIR, CRUTCHES, BSC, SHOWER CHAIR, AND GLUCOMETER AT HOME. [facility]'S PCP IS DR. RODRIGUEZ. PATIENT'S PHARMACY IS [facility] IN [place] ([phone]). THE PATIENT STATES HIS HOME ENVIRONMENT IS SAFE TO RETURN TO. CM ATTEMPTED TO CONTACT PATIENT'S EX- (IRAM) "[phone]" BY PHONE TO VERIFY ABOVE AND VA STATUS BUT NO ANSWER-CALL BACK NUMBER LEFT ON . CM WILL CONTINUE TO FOLLOW AND ASSIST WITH DISCHARGE PLANNING/NEEDS. Gps Field Data Collector: Annette Zuniga RN/MOSES Is the patient Alert and Oriented? No 0 * How many steps to enter\\exit or inside your home? 0 0 * PCP DR. RODRIGUEZ 0 * Pharmacy [facility] ([place]) [phone] 0 * Preadmission Environment Home with Family 0 * ADLs Partial Dependent 0 * Partial ADLs (Assistance needed) Ambulation Bathing Dressing Medication Management 0 * Equipment Bedside Commode Glucometer Shower Chair Walker Wheelchair 0 * List name and contact numbers for known caregivers / representatives who currently or will assist patient after discharge: IRAM (EX-) [phone] JESSICA BECKER (BROTHER) [phone] 0 * Community resources currently utilized None 0 * Additional services required to return to the preadmission environment? No 0 * Can the patient safely return to the preadmission environment? Yes 0 * Has this patient been hospitalized within the prior 30 days at any hospital? Yes 0 Grand Total: 0
[2016-11-22 15:59] VITALS: BP 115/42
[2016-11-22 18:42] LABS: CREATININE - URINE 51.6 mg/dL (30-125); PROTEIN - URINE 15.5 mg/dL (0.0-11.9)
[2016-11-22 18:50] LABS: APPEARANCE CLEAR (CLEAR); BILIRUBIN NEGATIVE (NEGATIVE); COLOR YELLOW (YELLOW); GLUCOSE 50 mg/dL (NEGATIVE); KETONE NEGATIVE (NEGATIVE); LEUKOCYTE ESTERASE TRACE (NEGATIVE); NITRITE NEGATIVE (NEGATIVE); PROTEIN NEGATIVE (NEGATIVE); SPECIFIC GRAVITY 1.015 (1.005-1.020); UROBILINOGEN NORMAL (NORMAL)
[2016-11-22 18:52] LABS: BACTERIA NONE SEEN /hpf (NONE SEEN); EPITHELIAL CELLS 0-5 /hpf (0-5); RED CELLS - URINE 0-5 /hpf (0-5); WHITE CELLS - URINE 0-5 /hpf (0-5)
[2016-11-22 20:55] VITALS: BP 103/67
[2016-11-23 00:11] VITALS: BP 90/43
--- NOTE | 2016-11-23 01:04 | NUR ---
PT RESTING WELL WITHOUT C/O OR DISTRESS NOTED. EYES CLOSED AND RESP EVEN AND UNLABORED. CALL LIGHT WITHIN REACH. WILL CONTINUE TO MONITOR.
[2016-11-23 04:49] VITALS: BP 92/40
[2016-11-23 06:01] LABS: BASOPHILS 0.2 % (0.0-2.0); EOSINOPHILS 3.6 % (0-7); HEMATOCRIT 32.1 % (42.0-54.0); IMMATURE GRANULOCYTES 0.2 % (0-5); LYMPHOCYTES 18.9 % (15-50); MCH 28.2 pg (26.0-34.0); MCHC 31.2 g/dL (31.0-37.0); MCV 90.4 fL (80.0-100.0); MEAN PLATELET VOLUME 10.6 fL (7.4-10.4); MONOCYTES 15.5 % (2-11); NEUTROPHILS 61.6 % (40-80); PLATELET COUNT 174 10x3/uL (130-400); RBC 3.55 10x6/uL (4.20-6.10); WBC 6.1 10x3/uL (4.8-10.8)
[2016-11-23 06:43] LABS: CALCIUM 8.8 mg/dL (8.5-10.1); CARBON DIOXIDE 30.9 mmol/L (21.0-32.0); MAGNESIUM - SERUM 2.3 mg/dL (1.8-2.4); PHOSPHOROUS 3.9 mg/dL (2.5-4.9); POTASSIUM - SERUM 4.9 mmol/L (3.5-5.1)
[2016-11-23 06:53] LABS: CREATININE - SERUM 1.2 mg/dL (0.6-1.3)
--- NOTE | 2016-11-23 07:35 | NUR ---
ASSESSMENT DONE. PT SLEEPING. RESP EVEN AND UNLABORED. NO DISTRESSED NOTED. PT RINCON. TOOK NURSE SEVERAL SEC'S TO WAKE PT. DENIES NEEDS AT THIS TIME. CALL LIGHT WITH IN REACH. WILL CONT. TO MONITOR.
[2016-11-23 08:01] VITALS: BP 112/47
--- NOTE | 2016-11-23 09:43 | NUR ---
RESTS WITH EYES CLOSED. RESP UL ON . CALL LIGHT IN REACH. WILL MONITOR NEEDS.
[2016-11-23 12:02] VITALS: BP 140/70
--- NOTE | 2016-11-23 12:04 | NUR ---
PT SITTING UP IN BED WATCHING TV. A/O X3. INFORMED PT THAT ORDER WAS GIVEN TO REMOVE EDWARDS. PT IS CONCERNED ABOUT NOT BEING ABLE TO URINATE AFTER EDWARDS IS OUT. WILL DO BLADDER TRAINING. DENIES NEEDS AT THIS TIME. CALL LIGHT WITH IN REACH. WILL CONT. TO MONITOR.
[2016-11-23 13:17] LABS: % SATURATION 13 % (15-55); IRON 28 ug/dl (35-150); TOTAL IRON BIND CAPACITY 213 ug/dl (260-445); UNSAT IRON BIND CAPACITY 185 ug/dl (150-375)
[2016-11-23 15:51] VITALS: BP 163/64
--- NOTE | 2016-11-23 15:55 | NUR ---
NURSE ATTEMPTED TO REMOVE PT'S EDWARDS. PT WISHES TO WAIT UNTIL AFTER SUPPER. STATES HE ISN'T SURE HE WILL BE ABLE TO USE URINAL. PT HAS BEEN BLADDER TRAINING SINCE ORDER WAS WRITTEN.
--- NOTE | 2016-11-23 17:20 | NUR ---
EDWARDS CATH REMOVED. PT TOLERATED WELL. MODERATE AMT OF YELLOW DRAINAGE NOTED AROUND URETHRA. PT DENIES PAIN AT SITE. URINAL PLACED WITHIN PT'S REACH. AND CALL LIGHT. ENCOURAGED PT TO CALL FOR ASSISTANCE WITH URINAL. ALSO, PT HAD A RUN OF A-FLUTTER WITH A HR OF 127. PT DENIES SYMPTOMS. WILL NOTIFY CARDIOLOGY.
--- NOTE | 2016-11-23 17:43 | NUR ---
PAGED DR. CALHOUN TO NOTIFY OF PT'S HR. ORDERS REC'D. SEE MAR. PT REMAINS ASYMPTOMATIC. WILL CONT. TO MONITOR.
--- NOTE | 2016-11-23 18:04 | NUR ---
DRESSING CHANGED TO PT'S LEFT ANKLE WOUND. WOUND CULTURE DONE. WOUND CLEANED WITH WOUND CLEANSER, PAT DRY, COVERED WITH XEROFORM GAUZE THEN 4X4'S, WRAPPED WITH KERLEX, AND SECURED WITH TAPE. MODERATE AMT OF YELLOW AND BROWN DRAINAGE NOTED WELL AN ODOR.
[2016-11-23 20:30] VITALS: BP 123/61
[2016-11-24 00:30] VITALS: BP 119/62
[2016-11-24 04:30] VITALS: BP 127/60
[2016-11-24 07:41] VITALS: BP 145/68
--- NOTE | 2016-11-24 10:11 | NUR ---
IP DRSG CHANGED BY PILL COATER AND INSTRUCTOR.
[2016-11-24 11:39] VITALS: BP 148/69
--- NOTE | 2016-11-24 12:49 | NUR ---
DRSG CHANGED TO LEFT FOOT.
[2016-11-24 15:21] VITALS: BP 146/73
--- NOTE | 2016-11-24 19:15 | NUR ---
INITIAL ROUNDS MADE. PT SITTING UP IN BED WATCHING TV. DENIES NEEDSOR C/O AT THIS TIME. CALL LIGHT IN REACH. WILL CONT TO MONITOR.
[2016-11-24 20:30] VITALS: BP 167/72
--- NOTE | 2016-11-25 00:27 | NUR ---
PRESS OPERATOR HELPER AT BEDSIDE FOR VS, NEEDS ADDRESSED. CALL LIGHT IN REACH. WILL CONT TO MONITOR.
[2016-11-25 00:30] VITALS: BP 153/85
[2016-11-25 04:45] VITALS: BP 145/69
[2016-11-25 08:00] VITALS: BP 173/81
[2016-11-25 12:00] VITALS: BP 176/88
--- NOTE | 2016-11-25 12:35 | NUR ---
WOUND CARE CONSULT: PT HAS AN OPEN WOUND TO THE LEFT HEEL/ACHILLES. HE SEES DR. DAVIS FOR THIS WOUND. IT MEASURES 10CM X 4CM X 0.9CM AND IS 75% RED/BEEFY AND 25% YELLOW/STRINGY. THERE IS NO ODOR, REDNESS, HEAT OR EDEMA. SMALL AMOUNT OF BLOODY DRAINAGE NOTED. COVERED WITH XEROFOAM GAUZE, 4X4S AND WRAPPED WITH KERLIX TO SECURE. PT TOLERATED WELL. WOUND CARE WILL CONTINUE TO MONITOR.
[2016-11-25 16:00] VITALS: BP 154/90
--- NOTE | 2016-11-25 19:45 | NUR ---
INTRODUCED MYSELF TO PT PRIMARY RN FOR TODAYS SHIFT. PT IS A&O RESTING QUIETLY IN BED WATCHING TV. RR NONLABORED WITH NC @3L IN PLACE. PT HAS DRSG TO L.FOOT CDI AND CHANGED TODAY BY WOUND CARE NURSE. NO SOILAGE OR NEED FOR CHANGE. EMPTIED BEDSIDE URINAL OF 250ML CLEAR YELLOW URINE. PT RESTING AND DENIES ANY FURTHER NEEDS AT THIS TIME. CL IN REACH. WILL CTM.
[2016-11-25 20:00] VITALS: BP 151/79
--- NOTE | 2016-11-25 21:30 | NUR ---
NIGHTLY MEDICATIONS PASSED. SHIFT ASSESSMENT COMPLETED. PT IS SITTING UP IN BED ALERT AND ORIENTED IN PLEASANT MOOD. PT WILL BE NPO AFTER MIDNIGHT AND IS AWARE. GOT CONSENTS SIGNED AND PLACED IN CHART. FSBS 200 PT REC'D 35 UNITS OF HIS SCHEDULED NPH. PT REQUESTED BEDTIME SNACK OF CHOCOLATE ICE CREAM AND WAS PROVIDED WITH IT. PT DENIES ANY FURTHER NEEDS AT THIS TIME. CL IN REACH, BED IN LOWEST, SIDE RAILS X2. WILL CPOC.
[2016-11-26] VITALS: BP 149/77
--- NOTE | 2016-11-26 00:53 | NUR ---
PT RESTING QUIETLY IN BED WITH EYES CLOSED. RR NONLABORED WITH NC @3L IN PLACE. NO S/S OF DISTRESS OR ANY CURRENT NEEDS AT THIS TIME. CL IN REACH, BED IN LOWEST, SIDE RAILS X2. WILL CPOC.
[2016-11-26 04:00] VITALS: BP 144/76
--- NOTE | 2016-11-26 07:54 | NUR ---
ASSESSMENT COMPLETED. TELEMERTY SHOWS SR. 02 @ 3 L/M. DENIES ANY NEEDS. SR UP WITH CALL LIGHT IN REACH. PREOP DONE FOR CATH. TO HUMAN RESOURCES ASSOCIATE PER BED
--- NOTE | 2016-11-26 08:56 | NUR ---
BACK TO ROOM. LEFT GROIN SOFT WITH DRSG DRY AND INTACT. PPP. RIGHT GROIN WITH A BRUSIED AREA, NO BLEEDING. TELEMERTY SHOWS SR
[2016-11-26 09:19] LABS: FOLATE (FOLIC ACID) - SERUM 15.9 ng/mL (>3.0)
[2016-11-26] MEDS ORDERED: NORVASC5 MG PO (10:24)
[2016-11-26] MEDS ORDERED: CORDARONE200 MG PO (10:33)
--- NOTE | 2016-11-26 11:24 | NUR ---
Patient Name: ERIN BECKER Encounter No: [id number] : 1950 Primary Insurance: MEDICARE A & B Anticipated DC Date: 11-26-2016 Planned Disposition: Home DCP follow-up note: CM MET WITH PT IN ROOM TO DISCUSS DISCHARGE NEEDS AND PLANNING. CM DISCUSSED AVAILABILITY OF HOME HEALTH, REHAB SERVICES AND MEDICAL EQUIPMENT. PT DENIES DISCHARGE NEEDS. SPOUSE TO TRANSPORT HOME AT DISCHARGE. IMPORTANT MESSAGE FROM MEDICARE PROVIDED AND EXPLAINED. Sanya Mart, CASE MANAGEMENT
--- NOTE | 2016-11-26 11:38 | NUR ---
LEFT GROIN SOFT WITH DRSG DRY AND INTACT. RIGHT GROIN WITH NO BLEEDING. V/S STABLE
[2016-11-26 11:58] VITALS: BP 157/77
--- NOTE | 2016-11-26 12:38 | NUR ---
PT DCD. TO PRIVATE CAR PER WHEELCHAIR
[2016-11-28 17:12] LABS: AEROBE ID Final report (())
--- NOTE | 2016-12-02 10:08 | HP ---
PATIENT: ERIN YOO MEDICAL RECORD: [id number] ACCOUNT: [id number] LOCATION:[address] : 54 ADMISSION DATE: 11/21/16 HISTORY AND PHYSICAL EXAMINATION DIAGNOSES: 1. Vweqo-ck-arekodh renal insufficiency. 2. Coronary artery disease. 3. Status post multivessel percutaneous transluminal coronary angioplasty stent. 4. Hypertension. 5. Hyperlipidemia. HISTORY OF PRESENT ILLNESS: Mr. Yoo presents to [facility] with shortness of breath. He did not have chest pain. He does have a history of coronary artery disease, status post multivessel PTCA stent. He was found to have acute renal insufficiency with a creatinine of 3.0. His troponin was mildly elevated. PHYSICAL EXAMINATION: GENERAL APPEARANCE: Well-nourished, well-developed, appears stated age. Level of distress, comfortable. PSYCHIATRIC: Mental status, alert, normal affect. Orientation, oriented to time, place and person. EYES: Lids and conjunctiva, noninjected. No discharge, no pallor. ENT: Lips, teeth, gums, normal dentition. Oropharynx, no cyanosis, no pallor. NECK: Carotid arteries, bilateral normal upstroke, no bruits, no thrills. JUGULAR VEINS: No jugular venous pressure or distention. CERVICAL LYMPH NODES: Nontender, nonenlarged. THYROID: Not enlarged. Nontender. No nodules. LUNGS: Respiratory effort, unlabored. CHEST: Normal curvature. No thoracic deformity. No chest wall tenderness. Percussion, resonant. Auscultation, clear. No wheezes, no rales, no rhonchi. CARDIOVASCULAR: Precordial exam, nondisplaced. No heaves or pericardial thrills. Rate and rhythm, regular. Heart sounds, normal S1, normal S2. No S3, no gallop, no rub. Systolic murmur, not heard. Diastolic murmur, not heard. EXTREMITIES: No cyanosis, no edema. Peripheral pulses, full and equal in all extremities, except as noted. No bruits appreciated. ABDOMEN: Soft, nondistended. Normal aorta. No bruit. Nontender. No masses. Liver, nontender, no hepatomegaly. Spleen, nontender, no splenomegaly. MUSCULOSKELETAL: No joint tenderness. No joint swelling. No erythema. NEUROLOGICAL: Normal gait, normal strength, normal tone. SKIN: Warm and dry. REVIEW OF SYSTEMS: The patient reports easy bruising but reports no swollen glands. The patient reports no fever, no night sweats, no significant weight gain, no significant weight loss. No significant exercise tolerance. The patient reports no dry eyes, no irritation, no vision change. Patient reports no difficulty hearing and no ear pain. Patient reports no frequent nose bleeds or nose and sinus problems. Patient reports on arm pain on exertion. No shortness of breath while lying down. No history of heart murmur. Patient reports no cough, no wheezing or coughing up blood. Patient reports no abdominal pain, no vomiting. Normal appetite. No diarrhea and not vomiting blood. No nausea and no constipation. Patient reports no incontinence. No difficulty urinating. No hematuria. No increased frequency. Patient reports no muscle aches. No weakness, no arthralgias, no back pain. No swelling of the HISTORY AND PHYSICAL [id number] ERIN YOO extremities. Patient reports no abnormal mole, no jaundice, no rashes. Reports no loss of consciousness. No weakness and no numbness. No seizures, dizziness, or headaches. The patient reports no depression, no sleep disturbance, feeling safe in a relationship and no alcohol abuse. Patient reports on fatigue. Reports no runny nose or sinus pressure. No itching, no hives, and no frequent sneezing. DIAGNOSTIC DATA: EKG is with no acute ST-T abnormalities. OVERALL IMPRESSION: Heczt-xd-lktoshp renal insufficiency. At this time, he is on lisinopril. We will discontinue the lisinopril. He is on no other medications. He would be possibly renal toxic, we will have renal see him. His creatinine is already down to 1.9. I think this is close to his baseline with no chest pain. I would not proceed with coronary angiography at this time. Further care depends upon Renal's recommendations and further renal values. TRANSINT:[id number] Voice Confirmation ID: [id number] DOCUMENT ID: [id number] PINKY DENIS MD at 1008 CC: [id number] DICTATION DATE: 11/22/16807 COMMERCIAL AGENT: 11/22/16904 DIS IN 11/26/16 [place] [address]
--- NOTE | 2016-12-02 10:08 | DS ---
PATIENT:ERIN BECKER :54 MEDICAL RECORD: [id number] DISCHARGE SUMMARY ADMISSION DATE: 11/21/16 DISCHARGE DATE: 11/26/16 DISCHARGE DIAGNOSES: 1. Angina. 2. Coronary artery disease. 3. Previous percutaneous transluminal coronary angioplasty stent. 4. Status post coronary bypass graft surgery. 5. Hypertension. 6. Hyperlipidemia. 7. Omlpn-nx-qakuejp renal insufficiency. HOSPITAL COURSE: This is a gentleman known to us with a past history of extensive coronary artery disease who presents with shortness of breath, found to be in renal failure, ftvnw-hi-gxtzkfr. His GATITO inhibitor was discontinued. His renal function normalized. He continued to have chest pain. He underwent cardiac catheterization revealing wide patency of the KAPOOR to the LAD, wide patency of the stents in the circumflex and right coronary artery, this chronic stable angina he has had this in the past, was discharged home to follow up with [facility] 1 month. TRANSINT:[id number] Voice Confirmation ID: [id number] DOCUMENT ID: [id number] PINKY DENIS MD at 1008 CC: [id number] DICTATION DATE: 11/26/16 0835 HEAD OF MOBILE: 11/26/162022 DIS IN 11/26/16 [id number] [place] [address]
--- NOTE | 2016-12-02 10:08 | OP ---
PATIENT NAME: ERIN BECKER MEDICAL RECORD: [id number] :54 LOCATION:D.M2 D.2120 ADMISSION DATE:11/21/16 SURGEON: PINKY DENIS MD DATE OF OPERATION: 11/26/2016 PROCEDURES: 1. Left heart catheterization. 2. Selective coronary angiography. 3. Left ventriculogram. 4. KAPOOR angiography. 5. Vein graft angiography. INDICATION: Angina and coronary artery disease. PROCEDURE: After informed consent was obtained and after a detailed explanation of risks, benefits as well as alternative therapies, the patient elected to proceed with angiogram and heart catheterization. The left femoral area was prepped and draped in normal sterile fashion. Left femoral artery was cannulated via modified Seldinger technique with placement of a 5-Frisian sheath. All catheters exchanged through this sheath. FINDINGS: Left ventriculogram was performed in standard 30-degree GOLDSTEIN view, reveals good cardiac wall motion throughout all segments. Overall ejection fraction estimated 60%. SELECTIVE CORONARY ANGIOGRAPHY: 1. Left main showed no significant angiographic disease. 2. Left anterior descending has a total occlusion in the mid vessel. 3. KAPOOR to the LAD is widely patent. 4. Left circumflex has previously placed stents, these are widely patent ____ ramus intermedius. No significant restenosis. No disease elsewise throughout the circumflex, ramus intermedius. 5. The right coronary has previously placed stents. These are widely patent with no significant restenosis. No disease elsewise. 6. Vein graft to the circumflex, vein graft to the RCA are closed. OVERALL IMPRESSION: Wide patency of the KAPOOR to the LAD, wide patency of all the stents in the circumflex and RCA. Continue medical management of chronic stable angina. TRANSINT:[id number] Voice Confirmation ID: [id number] DOCUMENT ID: [id number] PINKY DENIS MD at 1008 CC: [id number] DICTATION DATE: 11/26/16 0837 [employer] DIV[employer]: 11/26/16 0908 DIS IN 11/26/16 [facility] [address] [place] [address]
== END 2016-11-26 12:39 | disposition home or self-care (01) | DRG 287 ==
LOC: D.M2 17:10
PROVIDERS: Internal Medicine Interventional Cardiology; Internal Medicine Nephrology; ADMIT Internal Medicine Interventional Cardiology
PROC: B2181ZZ Fluoroscopy of Left Internal Mammary Bypass Graft using Low Osmolar Contrast (ICD-10-PCS; 2016-11-26)
PROC: B2151ZZ Fluoroscopy of Left Heart using Low Osmolar Contrast (ICD-10-PCS; 2016-11-26)
PROC: 4A023N7 Measurement of Cardiac Sampling and Pressure, Left Heart, Percutaneous Approach (ICD-10-PCS; 2016-11-26)
PROC: B2111ZZ Fluoroscopy of Multiple Coronary Arteries using Low Osmolar Contrast (ICD-10-PCS; principal; 2016-11-26 07:30)
DX: I25.118 Atherosclerotic heart disease of native coronary artery with other forms of angina pectoris (principal); N17.9 Acute kidney failure, unspecified; Z95.1 Presence of aortocoronary bypass graft; Z95.5 Presence of coronary angioplasty implant and graft; E78.5 Hyperlipidemia, unspecified; E11.22 Type 2 diabetes mellitus with diabetic chronic kidney disease; I12.9 Hypertensive chronic kidney disease with stage 1 through stage 4 chronic kidney disease, or unspecified chronic kidney disease; N18.9 Chronic kidney disease, unspecified; Z79.4 Long term (current) use of insulin; S91.302A Unspecified open wound, left foot, initial encounter; X58.XXXA Exposure to other specified factors, initial encounter